=== PATIENT | female | born 1990 | race Caucasian/White ===

== ENCOUNTER → 2018-05-06 16:47 | Outpatient (CLI) | payer BC, SELFPAY | PROVIDERS: PCP Family Medicine; Visit Provider Nurse Practitioner | DX: R00.2 Palpitations (principal) | CPT/HCPCS: 93225; 93226 ==

== ENCOUNTER → 2020-01-10 10:48 | Outpatient (CLI) | payer BC, SELFPAY | PROVIDERS: PCP Nurse Practitioner Family; Visit Provider Nurse Practitioner Family | DX: Z03.818 Encounter for observation for suspected exposure to other biological agents ruled out (principal) | CPT/HCPCS: U0003 ==

== ENCOUNTER 2020-07-04 17:57 | Emergency (ER) | payer BC, SELFPAY ==
[2020-07-04 17:59] VITALS: BP 149/84; PULSE 97; RESP 16; TEMP 36.8; O2SAT 100; BMI 21.4
--- NOTE | 2020-07-04 18:27 | [facility].EDGENADL ---
ED Disposition Clinical Impression: Left thigh pain Disposition: Home, Self-Care Condition on Discharge: Good Instructions: DI for Sciatica Additional Instructions: Ibuprofen 600 mg every 6-8 hours. Follow-up with primary care doctor if not improving in 3 to 4 days. Referrals: Chapito Kitchen MD [Primary Care Provider] - - Critical Care Critical Care Time: No Attestation: On 07/04/20, the high probability of a clinically significant, sudden or life threatening deterioration of the following system(s) required my full and direct attention, intervention and personal management. The time I documented below is in addition to time spent performing reported procedures but includes the following listed in this critical care notation. Medical Decision Making - Josh Inquiry Pt receiving controlled substance: No Vital Signs: 07/04/20 17:59 07/04/20 18:30 Temperature 98.2 F Temperature Source Oral Pulse Rate 96 H Pulse Rate [Right Radial] 97 H Respiratory Rate 16 20 Blood Pressure 145/75 H Blood Pressure [Right Arm] 149/84 H Blood Pressure Mean 96 Blood Pressure Mean [Right Arm] 105 Blood Pressure Source [Right Arm] Automatic Cuff Blood Pressure Position [Right Arm] Sitting 02 Sat by Pulse Oximetry 100 100 Oxygen Delivery Method Room Air - Lab Data Lab Results 07/04/20 18:40: WBC 9.3, RBC 4.90, Hgb 14.7, Hct 42.5, MCV 86.7, MCH 29.9, MCHC 34.6, RDW 13.2, Plt Count 242, MPV 8.0, Neut % (Auto) 54.3, Lymph % (Auto) 38.9, Park % (Auto) 3.9, Eos % (Auto) 2.4, Baso % (Auto) 0.5, Neut # (Auto) 5.0, Lymph # (Auto) 3.6, Park # (Auto) 0.4, Eos # (Auto) 0.2, Baso # (Auto) 0.1 07/04/20 18:40: D-Dimer 0.44 07/04/20 18:40: Sodium 140, Potassium 3.7, Chloride 106, Carbon Dioxide 23, Anion Gap 14.7, BUN 12, Creatinine 0.60, Estimated Creat Clear 124, Estimated GFR 118, Est GFR ( Amer) 143, Glucose 89, Calcium 9.7 Result diagrams: 07/04/20 18:40 07/04/20 18:40 Medical Decision Narrative: Work-up for DVT negative. Patient was symptoms are likely due to musculoskeletal or radicular pain. Recommend ibuprofen. General Adult HPI - General Chief complaint: PAIN Stated complaint: leg left pain Time Seen by Provider: 07/04/20 18:28 Mode of Arrival: Ambulatory Limitations: No Limitations Description of Symptoms (Recalled from ER Triage Doc. by RN): Pt c/o L thigh pain. Pt reports began having pain in L hip area approx 1.5 weeks ago, began having thigh pain yesterday. Pt reports she began taking control approx 1.5 months ago. - History of Present Illness HPI narrative: Complains of pain in her left lateral thigh and posterior thigh. She says initially started having some pain in her left buttock area about a week and a half ago but now has the pain in her thigh and is concerned about a blood clot because she started oral contraceptive pills a month and a half ago. No swelling of the extremity. No chest pain or shortness of breath. She contacted her doctor today who advised her to come in to be checked out. No history of DVT. No recent surgery, hospitalizations, or travel. No history of cancer. She has received Covid vaccine, Moderna. She does have a history of sciatica which she says was bothering her last Sunday. She took some Aleve. - Related Data Allergies Allergy/AdvReac Type Severity Reaction Status Date / Time amoxicillin [From Amoxil] Allergy Verified 07/04/20 18:55 guaifenesin [From Robitussin] Allergy Verified 07/04/20 18:55 omeprazole [From Prilosec] Allergy Verified 07/04/20 18:55 [facility] History - Hepatitis A Screen Drug use history?: No High risk sexual behaviors?: No History of sexually transmitted infection?: No Currently employed?: No Childcare worker?: No Do you have indoor plumbing?: Yes Do you have electricity?: Yes Attestation statement:: This patient has been screened for Hepatitis A risk factors. I have reviewed the patient's past medical history: Y
[2020-07-04 18:30] VITALS: BP 145/75; PULSE 96; RESP 20; O2SAT 100
[2020-07-04 18:54] LABS: Basophils # 0.1 K/mm3 (0-0.2); Basophils % 0.5 % (0.1-2.0); Eosinophils # 0.2 K/mm3 (0.0-0.4); Eosinophils % 2.4 % (0.1-12.0); Hematocrit 42.5 % (37.0-47.0); Hemoglobin 14.7 g/dL (12.2-16.2); Lymphocytes # 3.6 K/mm3 (0.7-4.5); Lymphocytes % 38.9 % (10-50); Mean Corpuscular HGB Conc 34.6 g/dL (31.8-35.4); Mean Corpuscular Hemoglobin 29.9 pg (27.0-31.2); Mean Corpuscular Volume 86.7 fl (81-99); Monocytes # 0.4 K/mm3 (0.1-1.0); Monocytes % 3.9 % (1.7-9.3); Neutrophils % 54.3 % (37.0-80.0); Platelet Count 242 K/mm3 (142-424); Red Cell Distribution Width 13.2 % (11.5-17.5); White Blood Count 9.3 K/mm3 (4.8-10.8)
[2020-07-04 19:04] LABS: Chloride 106 mmol/L (98-107)
[2020-07-04 19:05] LABS: Potassium 3.7 mmoL/L (3.5-5.1); Sodium 140 mmol/L (136-145)
[2020-07-04 19:07] LABS: Blood Urea Nitrogen 12 mg/dl (7-17); Creatinine Clearance Estimated 124 mL/min (50-200); Estimated Glomerular Filt Rate 118 ml/min (>60); GFR (African American) 143 ML/MIN (>60)
[2020-07-04 19:08] LABS: Anion Gap 14.7 mEq/L (5-15); Calcium 9.7 mg/dl (8.4-10.2); Carbon Dioxide 23 mmol/L (22.0-30.0); Glucose 89 mg/dl (74-100)
[2020-07-04 19:13] LABS: D-Dimer 0.44 ug/mL (0.0-0.5)
[2020-07-04 19:49] VITALS: BP 125/75; PULSE 75; RESP 18; TEMP 36.8; O2SAT 98
== END 2020-07-04 19:56 | disposition home or self-care (01) ==
PROVIDERS: Emergency Provider Emergency Medicine; PCP Family Medicine
DX: M79.652 Pain in left thigh (principal); M54.32 Sciatica, left side
CPT/HCPCS: 80048; 85025; 85378; 99282

== ENCOUNTER 2023-10-11 14:37 | Outpatient (CLI) | payer BC, SELFPAY ==
--- NOTE | 2023-10-11 14:45 | XR_ITS ---
FINAL REPORT TECHNIQUE: Chest PA & Lateral CLINICAL HISTORY: TUBERCULIN SKIN TEST ENCOUNTER/WELLNESS EXAMINATION COMPARISON: None FINDINGS: 2 views of the chest were performed. The heart size is normal. The mediastinum is within normal limits. There is no acute cardiopulmonary process. There are no pleural effusions. There is no pneumothorax. There is mild thoracic dextroscoliosis present. IMPRESSION: No acute cardiopulmonary process. Mild thoracic dextroscoliosis. Reviewed, Interpreted and Dictated by Bruce Motta MD Transcribed by Evonne Schwartz Authenticated and [facility]
== END 2023-10-11 23:59 | disposition home or self-care (01) ==
LOC: RAD 14:41
PROVIDERS: PCP Nurse Practitioner; Visit Provider Nurse Practitioner
DX: Z11.1 Encounter for screening for respiratory tuberculosis (principal); Z00.00 Encounter for general adult medical examination without abnormal findings
CPT/HCPCS: 71046